=== PATIENT | male | born 1960 | race Caucasian/White ===

== ENCOUNTER 2017-12-04 09:57 | Emergency (ER) | payer OTHER ==
[2017-12-04 10:06] VITALS: BP 188/112
--- NOTE | 2017-12-04 10:17 | UC ---
Eye Complaint HPI - HPI Summary HPI Summary: This patient is a 57 year old M presenting to [facility] with a chief complaint of irritating left eye discomfort since 2 days ago. The patient rates the pain 1/ 10 in severity. Patient reports discharge from left eye in the morning - History of Current Complaint Chief Complaint: UCEye Stated Complaint: L EYE COMPLAINT Time Seen by Provider: 12/04/17 10:09 Hx Obtained From: Patient Onset/Duration: Sudden Onset, Lasting Days - 2 days ago, Still Present Timing: Constant Severity Initially: Mild Severity Currently: Mild Pain Intensity: 1 Pain Scale Used: 0-10 Numeric - Allergies/Home Medications Allergies/Adverse Reactions: Allergies Allergy/AdvReac Type Severity Reaction Status Date / Time codeine Allergy lock jaw Verified 12/04/17 10:07 PMH/Surg Hx/FS Hx/Imm Hx Endocrine History: Diabetes - Denies Cardiovascular History: Hypertension - Surgical History Surgical History: Yes Surgery Procedure, Year, and Place: gall bladder removed, ACL surgery - Family History Known Family History: Positive: Hypertension, Other - Cancer - Social History Occupation: Employed Full-time Lives: With Family Alcohol Use: None Substance Use Type: None Smoking Status (MU): Former Smoker Type: eCigarettes Review of Systems Constitutional: Fever - Denies Eyes: Drainage - Left eye drainage in the morning, Other - Left eye irritation All Other Systems Reviewed And Are Negative: Yes Physical Exam - Summary Physical Exam Summary: VITAL SIGNS: Reviewed. GENERAL: Patient is a well-developed and nourished MALE who is lying comfortable in the stretcher. Patient is not in any acute respiratory distress. HEAD AND FACE: Normocephalic EYES: PERRLA, EOMI x 2. Positive left injected conjunctiva with some yellow discharge EARS: Hearing grossly intact. MOUTH: Oropharynx within normal limits. NECK: Supple, trachea is midline, no adenopathy, no JVD, no carotid bruit. CHEST: Symmetric, no tenderness at palpation LUNGS: Clear to auscultation bilaterally. No wheezing or crackles. CVS: Regular rate and rhythm, S1 and S2 present, no murmurs or gallops appreciated. ABDOMEN: Soft, non-tender. Bowel sounds are normal. No abdominal abnormal pulsations. EXTREMITIES: Full ROM in all major joints, no edema, no cyanosis or clubbing. NEURO: Alert and oriented x 3. No acute neurological deficits. Speech is normal and follows commands. SKIN: Dry and warm Triage Information Reviewed: Yes Vital Signs: Initial Vital Signs Temp 97.8 F 12/04/17 10:01 Pulse 94 12/04/17 10:01 Resp 15 12/04/17 10:01 BP 188/112 12/04/17 10:01 Pulse Ox 99 12/04/17 10:01 Vital Signs Reviewed: Yes Eye Complaint Course/Dx - Course Course Of Treatment: Patient is a 57-year-old male who presents to the urgent care with left eye infection. It seems that the patient has an acute conjunctivitis. Patient was given ofloxacin and discharged home with follow-up with PCP. He has no history of trauma. Patient was asked to return to the urgent care if the symptoms worsens. He understands and agrees. - Differential Dx/Diagnosis Provider Diagnoses: Conjunctivitis Discharge - Sign-Out/Discharge Documenting (check all that apply): Patient Departure - D/C All imaging exams completed and their final reports reviewed: No Studies - Discharge Plan Condition: Stable Disposition: HOME Prescriptions: Ofloxacin 0.3%(Ophth)(Nf) [Ocuflox OPTH 0.3%(NF)] 2 ophth.soln OP Q4H #1 bottle Patient Education Materials: Conjunctivitis (ED) Referrals: No Primary Care Phys,NOPCP [Primary Care Provider] - Additional Instructions: Return to the or go to the emergency department if symptoms worsen Follow-up with primary care physician in next 2-3 days - Billing Disposition and Condition Condition: STABLE Disposition: Home - Attestation Statements Document Initiated by Scribe: Yes Documenting Scribe: Selvin Dover Provider For Whom Kathleen is Documenting (Include Credential): Hitesh Lux MD Scribe Attestation: Selvin Dawson, scribed for Hitesh Lux MD on 12/05/17 at 2140. Scribe Documentation Reviewed: Yes Provider Attestation: The documentation as recorded by the Selvin ho accurately reflects the service I personally performed and the decisions made by me, Hitesh Lux MD
== END 2017-12-04 10:25 | disposition home or self-care (01) ==
LOC: UCEAST 09:57
DX: H10.32 Unspecified acute conjunctivitis, left eye (principal); Z88.5 Allergy status to narcotic agent; Z87.891 Personal history of nicotine dependence
CPT/HCPCS: 99202; G0463